=== PATIENT | female | born 1995 | race African-American/Black ===

== ENCOUNTER 2017-09-04 01:15 | Emergency (ER) | payer MEDICAID ==
[~2017-09-04] VITALS: Ht 162.6 cm; Wt 67.1 kg
[2017-09-04 01:30] VITALS: Ht 162.6 cm; Wt 67.1 kg
[2017-09-04 04:44] VITALS: BP 109/55
== END 2017-09-04 04:44 | disposition home or self-care (01) ==
LOC: ED 01:15
DX: G89.29 Other chronic pain (principal); M25.562 Pain in left knee
CPT/HCPCS: J1885; Q0092

== ENCOUNTER 2018-01-08 18:12 | Emergency (ER) | payer MEDICAID ==
[~2018-01-08] VITALS: Ht 165.1 cm; Wt 67.1 kg
[2018-01-08 18:19] VITALS: Ht 165.1 cm; Wt 67.1 kg
[2018-01-08 19:15] LABS: microscopic required? NO
[2018-01-08 19:55] LABS: urine erythrocyte NEGATIVE (NEGATIVE)
[2018-01-08 20:02] LABS: BASOPHIL % 0.3 % (0-2); PLATELET COUNT 350 x10^3mcL (130-400)
[2018-01-08 20:04] LABS: RED CELL DISTRIBUTION WIDTH 18.6 % (11.5-14.5)
[2018-01-08 20:05] LABS: CALCIUM 9.2 mg/dL (8.5-10.1); CHLORIDE SERUM 104 mmol/L (98-107); CREATININE SERUM 0.7 mg/dL (0.6-1.0); GFR1 > 60 mL/min; GLUCOSE SERUM 83 mg/dL (74-106); POTASSIUM SERUM 3.9 mmol/L (3.5-5.1); SODIUM SERUM 129 mmol/L (136-145)
[2018-01-08 20:10] LABS: ALBUMIN 3.7 g/dL (3.4-5.0); ALKALINE PHOSPHATASE 47 U/L (46-116); ALT/SGPT 17 U/L (14-59); AST/SGOT 15 U/L (15-37); BILIRUBIN TOTAL 0.41 mg/dL (0.20-1.00); LIPASE 99 IU/L (73-393); TOTAL PROTEIN, SERUM 7.4 g/dL (6.4-8.2)
[2018-01-08 21:07] VITALS: BP 100/56
== END 2018-01-08 21:07 | disposition home or self-care (01) ==
LOC: ED 18:12
PROVIDERS: Emergency Medicine
DX: O21.0 Mild hyperemesis gravidarum (principal); Z3A.01 Less than 8 weeks gestation of pregnancy
CPT/HCPCS: 83880; J2765; J3490